=== PATIENT | male | born 1965 | race Caucasian/White ===

== ENCOUNTER 2019-02-06 10:45 | Inpatient (IN) | payer OTHER ==
[2019-02-06 11:12] VITALS: BMI 29.2
--- NOTE | 2019-02-06 11:53 | HP ---
CIWA Score Nausea/Vomitin-No Nausea/No Vomiting Muscle Tremors: 2 Anxiety: 0-No Anxiety, at Ease Agitation: 4-Moderately Restless Paroxysmal Sweats: No Perspiration Orientation: 3-Disoriented Date>2 days Tacttile Disturbances: 0-None Auditory Disturbances: 0-None Visual Disturbances: 0-None Headache: 0-None Present CIWA-Ar Total Score: 9 - Admission Criteria OASAS Guidelines: Admission for Medically Managed Detox: Requires at least one of the followin. CIWA greater than 12 2. Seizures within the past 24 hours 3. Delirium tremens within the past 24 hours 4. Hallucinations within the past 24 hours 5. Acute intervention needed for co occurring medical disorder 6. Acute intervention needed for co occurring psychiatric disorder 7. Severe withdrawal that cannot be handled at a lower level of care (continued vomiting, continued diarrhea, abnormal vital signs) requiring intravenous medication and/or fluids 8. Admission ROS [facility] Allergies/Adverse Reactions: Allergies Allergy/AdvReac Type Severity Reaction Status Date / Time Fish Containing Products Allergy Verified 02/06/19 11:00 fish derived Allergy Rash Verified 02/06/19 11:00 History of Present Illness: pt here requesting detox from etoh use , reports 18-pk beer and 1 pint rum daily , current symptoms as above, s/p hospitalization in [facility] given meds Librium per pt . pmhx : denies pshx ; lumbar laminectomy 10 years ago w/ hardware in place , ddd psych : denies Exam Limitations: Clinical Condition, Intoxication - Ebola screening Have you traveled outside of the country in the last 21 days: No Have you had contact with anyone from an Ebola affected area: No Do you have a fever: No - Review of Systems Constitutional: No Symptoms Reported EENT: reports: No Symptoms Reported Respiratory: reports: No Symptoms reported Cardiac: reports: No Symptoms Reported GI: reports: Diarrhea : reports: No Symptoms Reported Musculoskeletal: reports: Back Pain Integumentary: reports: No Symptoms Reported Neuro: reports: No Symptoms reported Endocrine: reports: No Symptoms Reported Psychiatric: reports: Orientated x3, Agitated Patient History - Smoking Cessation Smoking history: Smoker current status UNK - Substances abused Alcohol Substance route: Oral Frequency: Daily Amount used: 1 pint of Barcardi, 18 12oz beer Age of first use: 12 Date of last use: 02/06/19 Family Disease History - Family Disease History Family History: Unable to Obtain Admission Physical Exam BHS - Vital Signs Vital Signs: Vital Signs - 24 hr 02/06/19 02/06/19 11:04 11:44 Temperature 98.1 F 98.1 F Pulse Rate 84 84 Respiratory 18 18 Rate Blood Pressure 153/99 153/99 - Physical General Appearance: Yes: Disheveled, Mild Distress HEENTM: Yes: EOMI, Hearing grossly Normal, Normocephalic, Normal Voice Respiratory: Yes: Chest Non-Tender, Lungs Clear, Normal Breath Sounds, No Respiratory Distress, No Accessory Muscle Use Neck: Yes: No masses,lesions,Nodules, Trachea in good position Cardiology: Yes: Regular Rhythm, Regular Rate, S1, S2 Abdominal: Yes: Non Tender, Soft Musculoskeletal: Yes: Gait Steady Extremities: Yes: Normal Range of Motion, Non-Tender, Tremors Neurological: Yes: Alert, Motor Strength 5/5 Integumentary: Yes: Warm - Diagnostic (1) Alcohol abuse Current Visit: Yes Status: Acute Breathalyzer - Breathalyzer Breathalyzer: 0.083 Urine Drug Screen - Test Device Lot number: [id number] Expiration date: 10/12/20 - Control Is test valid?: Yes - Results Drug screen NEGATIVE: No Urine drug screen results: BZO-Benzodiazepines Inpatient Rehab Admission - Rehab Decision to Admit Inpatient rehab admission?: No
[2019-02-06] MEDS ORDERED: IBUPROFEN 400 MG TABLET (FP) PO PRN (11:57)
[2019-02-06] MEDS ORDERED: MAGNESIUM HYDROX 2400MG/30ML ORAL SUSPENSION 30 ML CUP PO PRN (11:57)
[2019-02-06] MEDS ORDERED: BISMUTH SUBSALICYLATE 262 MG/15 ML BTL PO PRN (11:57)
[2019-02-06] MEDS ORDERED: ACETAMINOPHEN 325 MG TABLET (FP) PO PRN ×2 (11:57)
[2019-02-06] MEDS ORDERED: MAGNESIUM CITRATE 300 ML BOTTLE PO PRN (11:57)
[2019-02-06] MEDS ORDERED: MAG HYDROX/AL HYDROX/SIMETH 30 ML UNIT-DOSE CUP PO PRN (11:57)
[2019-02-06] MEDS ORDERED: NICOTINE POLACRILEX 2 MG GUM BUC PRN (11:57)
[2019-02-06] MEDS ORDERED: MENTHOL/PHENOL 1 EACH UD MM PRN (11:57)
[2019-02-06] MEDS ORDERED: chlordiazePOXIDE HCL 25 MG CAPSULE PO PRN (11:57)
[2019-02-06] MEDS ORDERED: hydrOXYzine PAMOATE 25 MG CAPSULE (FP) PO PRN (11:57)
[2019-02-06] MEDS ORDERED: chlordiazePOXIDE HCL 25 MG CAPSULE PO ONE (13:05)
[2019-02-06] MEDS: NICOTINE 21 MG/24 HOURS TOPICAL PATCH TD SCH (13:51)
[2019-02-06 17:09] LABS: BASO % 0.8 % (0-2.0); EOS % 2.1 % (0-4.5); HEMATOCRIT 40.1 % (35.4-49); LYMPH % 21.1 % (8-40); MCH 30.3 pg (25.7-33.7); MCHC 32.4 g/dl (32.0-35.9); MEAN CELL VOLUME 93.5 fl (80-96); MEAN PLT VOLUME 9.7 fl (7.5-11.1); MONO % 9.2 % (3.8-10.2); NEUT % 66.8 % (42.8-82.8); PLATELET COUNT 48 K/MM3 (134-434); RBC 4.29 M/mm3 (4.00-5.60); WHITE BLOOD COUNT 3.9 K/mm3 (4.0-10.0)
[2019-02-06 17:17] LABS: ALBUMIN 3.3 g/dl (3.4-5.0); BILIRUBIN,TOTAL 1.2 mg/dL (0.2-1); CALCIUM 7.6 mg/dL (8.5-10.1); CREATININE 0.7 mg/dL (0.55-1.3); POTASSIUM 4.4 mmol/L (3.5-5.1); TOT PROT 7.4 g/dl (6.4-8.2)
[2019-02-06 17:23] LABS: BLOOD UREA NITROGEN 2.7 mg/dL (7-18)
[2019-02-06] MEDS: chlordiazePOXIDE HCL 25 MG CAPSULE PO SCH ×2 (17:35→22:22)
[2019-02-06] MEDS: THIAMINE HCL 100 MG TABLET (FP) PO SCH (22:23)
[2019-02-07] MEDS: chlordiazePOXIDE HCL 25 MG CAPSULE PO SCH ×4 (06:28→22:33)
[2019-02-07] MEDS: NICOTINE 21 MG/24 HOURS TOPICAL PATCH TD SCH (10:04)
[2019-02-07] MEDS: PRENATAL VITAMINS W/ FOLIC ACID TABLET (FP) PO SCH (10:04)
--- NOTE | 2019-02-07 14:43 | PN ---
S CIWA - CIWA Score Nausea/Vomitin-Mild Nausea/No Vomiting Muscle Tremors: 1-None Visible, but [place] Anxiety: 1-Mildly Anxious Agitation: 1-Slight > Activity Paroxysmal Sweats: 1-Minimal Palms Moist Orientation: 0-Oriented Tacttile Disturbances: 0-None Auditory Disturbances: 0-None Visual Disturbances: 0-None Headache: 0-None Present CIWA-Ar Total Score: 5 BHS Progress Note (SOAP) Subjective: pt states he is feeling better. O: Vital Signs - 24 hr 02/06/19 02/06/19 02/07/19 16:43 20:44 00:30 Temperature 99 F 99.7 F H Pulse Rate 81 63 Respiratory 18 18 18 Rate Blood Pressure 152/96 108/30 L 02/07/19 02/07/19 02/07/19 03:30 07:07 10:00 Temperature 98.6 F 98.1 F Pulse Rate 79 72 Respiratory 18 18 18 Rate Blood Pressure 116/70 117/60 02/07/19 14:06 Temperature 97.3 F L Pulse Rate 82 Respiratory 18 Rate Blood Pressure 122/90 Laboratory Tests 02/06/19 02/06/19 02/06/19 13:35 13:35 13:35 WBC 3.9 L RBC 4.29 Hgb 13.0 Hct 40.1 MCV 93.5 MCH 30.3 MCHC 32.4 RDW 18.0 H Plt Count 48 L MPV 9.7 Absolute Neuts (auto) 2.6 Neutrophils % 66.8 Lymphocytes % 21.1 Monocytes % 9.2 Eosinophils % 2.1 Basophils % 0.8 Nucleated RBC % 0 Sodium 141 Potassium 4.4 Chloride 106 Carbon Dioxide 31 Anion Gap 4 L BUN 2.7 L* Creatinine 0.7 Est GFR (CKD-EPI)AfAm 123.13 Est GFR (CKD-EPI)NonAf 106.24 Random Glucose 94 Calcium 7.6 L Total Bilirubin 1.2 H AST 184 H ALT 63 H Alkaline Phosphatase 143 H Total Protein 7.4 Albumin 3.3 L RPR Titer Nonreactive low BUN. low albumin: may indicate low protein intake a/p: continue alcohol detox protocol
[2019-02-07] MEDS: THIAMINE HCL 100 MG TABLET (FP) PO SCH (22:33)
[2019-02-07] MEDS: MELATONIN 5 MG TABLETS PO PRN (22:33)
[2019-02-08] MEDS: chlordiazePOXIDE HCL 25 MG CAPSULE PO SCH ×2 (05:38→11:09)
[2019-02-08] MEDS: PRENATAL VITAMINS W/ FOLIC ACID TABLET (FP) PO SCH (11:09)
[2019-02-08] MEDS: NICOTINE 21 MG/24 HOURS TOPICAL PATCH TD SCH (11:09)
--- NOTE | 2019-02-08 11:11 | PN ---
S CIWA - CIWA Score Nausea/Vomitin Muscle Tremors: 2 Anxiety: 2 Agitation: 2 Paroxysmal Sweats: 1-Minimal Palms Moist Orientation: 0-Oriented Tacttile Disturbances: 1-Very Mild Itch/Numbness Auditory Disturbances: 1-Very Mild Visual Disturbances: 0-None Headache: 2-Mild CIWA-Ar Total Score: 13 BHS Progress Note (SOAP) Subjective: alert,irritable,anxious,interrupted sleep,tremor Objective: 02/08/19 11:07 Vital Signs Temperature 98.4 F 02/08/19 09:16 Pulse Rate 74 02/08/19 09:16 Respiratory Rate 16 02/08/19 09:16 Blood Pressure 103/64 02/08/19 09:16 O2 Sat by Pulse Oximetry (%) 02/08/19 11:08 Laboratory Last Values WBC 3.9 K/mm3 (4.0-10.0) L 02/06/19 13:35 RBC 4.29 M/mm3 (4.00-5.60) 02/06/19 13:35 Hgb 13.0 GM/dL (11.7-16.9) 02/06/19 13:35 Hct 40.1 % (35.4-49) 02/06/19 13:35 MCV 93.5 fl (80-96) 02/06/19 13:35 MCH 30.3 pg (25.7-33.7) 02/06/19 13:35 MCHC 32.4 g/dl (32.0-35.9) 02/06/19 13:35 RDW 18.0 % (11.9-15.9) H 02/06/19 13:35 Plt Count 48 K/MM3 (134-434) L 02/06/19 13:35 MPV 9.7 fl (7.5-11.1) 02/06/19 13:35 Absolute Neuts (auto) 2.6 K/mm3 (1.5-8.0) 02/06/19 13:35 Neutrophils % 66.8 % (42.8-82.8) 02/06/19 13:35 Lymphocytes % 21.1 % (8-40) 02/06/19 13:35 Monocytes % 9.2 % (3.8-10.2) 02/06/19 13:35 Eosinophils % 2.1 % (0-4.5) 02/06/19 13:35 Basophils % 0.8 % (0-2.0) 02/06/19 13:35 Nucleated RBC % 0 % (0-0) 02/06/19 13:35 Sodium 141 mmol/L (136-145) 02/06/19 13:35 Potassium 4.4 mmol/L (3.5-5.1) 02/06/19 13:35 Chloride 106 mmol/L (98-107) 02/06/19 13:35 Carbon Dioxide 31 mmol/L (21-32) 02/06/19 13:35 Anion Gap 4 MMOL/L (8-16) L 02/06/19 13:35 BUN 2.7 mg/dL (7-18) L* 02/06/19 13:35 Creatinine 0.7 mg/dL (0.55-1.3) 02/06/19 13:35 Est GFR (CKD-EPI)AfAm 123.13 02/06/19 13:35 Est GFR (CKD-EPI)NonAf 106.24 02/06/19 13:35 Random Glucose 94 mg/dL (74-106) 02/06/19 13:35 Calcium 7.6 mg/dL (8.5-10.1) L 02/06/19 13:35 Total Bilirubin 1.2 mg/dL (0.2-1) H 02/06/19 13:35 AST 184 U/L (15-37) H 02/06/19 13:35 ALT 63 U/L (13-61) H 02/06/19 13:35 Alkaline Phosphatase 143 U/L (45-117) H 02/06/19 13:35 Total Protein 7.4 g/dl (6.4-8.2) 02/06/19 13:35 Albumin 3.3 g/dl (3.4-5.0) L 02/06/19 13:35 RPR Titer Nonreactive (NONREACTIVE) 02/06/19 13:35 Assessment: 02/08/19 11:08 withdrawal symptom Plan: continue detox,repeat cmp in am,initial bun is 2.7,bili 1.2,ast 184.alt63, encourage oral fluid,repeat cmp in am
[2019-02-08] MEDS ORDERED: chlordiazePOXIDE HCL 10 MG CAPSULE PO PRN (17:00)
[2019-02-08] MEDS: chlordiazePOXIDE HCL 10 MG CAPSULE PO SCH ×2 (17:52→22:33)
[2019-02-08] MEDS: THIAMINE HCL 100 MG TABLET (FP) PO SCH (22:33)
[2019-02-08] MEDS: MELATONIN 5 MG TABLETS PO PRN (22:34)
[2019-02-09] MEDS: chlordiazePOXIDE HCL 10 MG CAPSULE PO SCH ×3 (06:11→17:36)
[2019-02-09] MEDS: PRENATAL VITAMINS W/ FOLIC ACID TABLET (FP) PO SCH (10:27)
[2019-02-09] MEDS: NICOTINE 21 MG/24 HOURS TOPICAL PATCH TD SCH (10:27)
[2019-02-09 12:02] LABS: ALBUMIN 2.8 g/dl (3.4-5.0); BILIRUBIN,TOTAL 1.2 mg/dL (0.2-1); CALCIUM 8.2 mg/dL (8.5-10.1); CREATININE 0.7 mg/dL (0.55-1.3); TOT PROT 6.1 g/dl (6.4-8.2)
--- NOTE | 2019-02-09 12:02 | PN ---
[facility] CIWA - CIWA Score Nausea/Vomitin-No Nausea/No Vomiting Muscle Tremors: 1-None Visible, but [place] Anxiety: 1-Mildly Anxious Agitation: 0-Normal Activity Paroxysmal Sweats: 1-Minimal Palms Moist Orientation: 0-Oriented Tacttile Disturbances: 0-None Auditory Disturbances: 0-None Visual Disturbances: 0-None Headache: 0-None Present CIWA-Ar Total Score: 3 BHS Progress Note (SOAP) Subjective: c/o of back pain, interrupted sleep, diarrhea Objective: 02/09/19 12:02 Vital Signs Temperature 98.1 F 02/09/19 09:15 Pulse Rate 83 02/09/19 09:15 Respiratory Rate 16 02/09/19 09:15 Blood Pressure 129/74 02/09/19 09:15 O2 Sat by Pulse Oximetry (%) Laboratory Tests 02/06/19 02/06/19 02/06/19 13:35 13:35 13:35 WBC 3.9 L RBC 4.29 Hgb 13.0 Hct 40.1 MCV 93.5 MCH 30.3 MCHC 32.4 RDW 18.0 H Plt Count 48 L MPV 9.7 Absolute Neuts (auto) 2.6 Neutrophils % 66.8 Lymphocytes % 21.1 Monocytes % 9.2 Eosinophils % 2.1 Basophils % 0.8 Nucleated RBC % 0 Sodium 141 Potassium 4.4 Chloride 106 Carbon Dioxide 31 Anion Gap 4 L BUN 2.7 L* Creatinine 0.7 Est GFR (CKD-EPI)AfAm 123.13 Est GFR (CKD-EPI)NonAf 106.24 Random Glucose 94 Calcium 7.6 L Total Bilirubin 1.2 H AST 184 H ALT 63 H Alkaline Phosphatase 143 H Total Protein 7.4 Albumin 3.3 L RPR Titer Nonreactive 02/09/19 07:00 WBC RBC Hgb Hct MCV MCH MCHC RDW Plt Count MPV Absolute Neuts (auto) Neutrophils % Lymphocytes % Monocytes % Eosinophils % Basophils % Nucleated RBC % Sodium 142 Potassium 4.0 Chloride 106 Carbon Dioxide 33 H Anion Gap 3 L BUN Creatinine 0.7 Est GFR (CKD-EPI)AfAm 123.13 Est GFR (CKD-EPI)NonAf 106.24 Random Glucose 76 Calcium 8.2 L Total Bilirubin 1.2 H AST 85 H ALT 58 Alkaline Phosphatase 134 H Total Protein 6.1 L Albumin 2.8 L RPR Titer Labs reviewed Assessment: 02/09/19 12:05 Aox3, no acute distress, full ROM ambulating in the unit Plan: increase PO fluids CMP improve from initial visit Patient to follow up with PCP upon discharge Continue to monitor
[2019-02-09 12:07] LABS: BLOOD UREA NITROGEN 2.2 mg/dL (7-18)
[2019-02-09] MEDS: MELATONIN 5 MG TABLETS PO PRN (22:13)
[2019-02-09] MEDS: THIAMINE HCL 100 MG TABLET (FP) PO SCH (22:13)
[2019-02-10] MEDS: chlordiazePOXIDE HCL 10 MG CAPSULE PO SCH (06:12)
[2019-02-10 06:53] VITALS: PULSE 65
[2019-02-10 10:38] VITALS: BP 104/65; TEMP 97.9
[2019-02-10] MEDS: NICOTINE 21 MG/24 HOURS TOPICAL PATCH TD SCH (11:28)
[2019-02-10] MEDS: PRENATAL VITAMINS W/ FOLIC ACID TABLET (FP) PO SCH (11:28)
--- NOTE | 2019-02-10 12:54 | DS ---
[facility] Detox Discharge Summary Admission Date: 02/06/19 Discharge Date: 02/10/19 - History Present History: Alcohol Dependence Additional Comments: Pt is medically cleared and is discharged today. Pt has completed his detox protocol. As per socialworker's notes, "PT shared about consequences of his drinking which this time resulted in all his clothes, wallet and his phone [place] train. If there is no bed in [facility] upon his DC, PT plans to go reinstate his IDs. This Counselor gave him some clothes from donation". Pt is alert and oriented x3, in no acute respiratory distress. Pt is encouraged to follow-up with oupatient CD program and also to follow with with his PMD. Pt verbalized understanding. Pertinent Past History: H/O alcohol use disorder. - Physical Exam Results Vital Signs: Vital Signs Temperature 97.9 F 02/10/19 10:37 Pulse Rate 65 02/10/19 10:37 Respiratory Rate 18 02/10/19 10:37 Blood Pressure 104/65 02/10/19 10:37 O2 Sat by Pulse Oximetry (%) Vital Signs 02/10/19 02/10/19 06:51 10:37 Temperature 97.7 F 97.9 F Pulse Rate 65 65 Respiratory 18 18 Rate Blood Pressure 115/76 104/65 Laboratory Last Values WBC 3.9 K/mm3 (4.0-10.0) L 02/06/19 13:35 RBC 4.29 M/mm3 (4.00-5.60) 02/06/19 13:35 Hgb 13.0 GM/dL (11.7-16.9) 02/06/19 13:35 Hct 40.1 % (35.4-49) 02/06/19 13:35 MCV 93.5 fl (80-96) 02/06/19 13:35 MCH 30.3 pg (25.7-33.7) 02/06/19 13:35 MCHC 32.4 g/dl (32.0-35.9) 02/06/19 13:35 RDW 18.0 % (11.9-15.9) H 02/06/19 13:35 Plt Count 48 K/MM3 (134-434) L 02/06/19 13:35 MPV 9.7 fl (7.5-11.1) 02/06/19 13:35 Absolute Neuts (auto) 2.6 K/mm3 (1.5-8.0) 02/06/19 13:35 Neutrophils % 66.8 % (42.8-82.8) 02/06/19 13:35 Lymphocytes % 21.1 % (8-40) 02/06/19 13:35 Monocytes % 9.2 % (3.8-10.2) 02/06/19 13:35 Eosinophils % 2.1 % (0-4.5) 02/06/19 13:35 Basophils % 0.8 % (0-2.0) 02/06/19 13:35 Nucleated RBC % 0 % (0-0) 02/06/19 13:35 Sodium 142 mmol/L (136-145) 02/09/19 07:00 Potassium 4.0 mmol/L (3.5-5.1) 02/09/19 07:00 Chloride 106 mmol/L (98-107) 02/09/19 07:00 Carbon Dioxide 33 mmol/L (21-32) H 02/09/19 07:00 Anion Gap 3 MMOL/L (8-16) L 02/09/19 07:00 BUN 2.2 mg/dL (7-18) L* 02/09/19 07:00 Creatinine 0.7 mg/dL (0.55-1.3) 02/09/19 07:00 Est GFR (CKD-EPI)AfAm 123.13 02/09/19 07:00 Est GFR (CKD-EPI)NonAf 106.24 02/09/19 07:00 Random Glucose 76 mg/dL (74-106) 02/09/19 07:00 Calcium 8.2 mg/dL (8.5-10.1) L 02/09/19 07:00 Total Bilirubin 1.2 mg/dL (0.2-1) H 02/09/19 07:00 AST 85 U/L (15-37) H 02/09/19 07:00 ALT 58 U/L (13-61) 02/09/19 07:00 Alkaline Phosphatase 134 U/L (45-117) H 02/09/19 07:00 Total Protein 6.1 g/dl (6.4-8.2) L 02/09/19 07:00 Albumin 2.8 g/dl (3.4-5.0) L 02/09/19 07:00 RPR Titer Nonreactive (NONREACTIVE) 02/06/19 13:35 Labs noted. Pertinent Admission Physical Exam Findings: withdrawal symptoms. - Treatment Hospital Course: Detox Protocol Followed, Detoxed Safely, Responded well, Discharged Condition Good - Medication Discharge Medications: Ambulatory Orders NK [No Known Home Medication] 02/06/19 - Diagnosis (1) Alcohol abuse Status: Acute - AMA Did Patient Leave Against Medical Advice: No
== END 2019-02-10 11:35 | disposition home or self-care (01) | DRG 775 ==
LOC: YASAS 10:45 → Y6N 12:35
PROVIDERS: ADMIT Surgery; ATTEND Surgery
PROC: HZ2ZZZZ Detoxification Services for Substance Abuse Treatment (ICD-10-PCS; principal; 2019-02-06)
DX: F10.230 Alcohol dependence with withdrawal, uncomplicated (principal); Z91.013 Allergy to seafood; Z59.0 Homelessness
CPT/HCPCS: 36415; 80053; 85025; 86593

== ENCOUNTER 2024-10-03 22:14 | Inpatient (IN) | payer OTHER ==
[2024-10-03 22:43] VITALS: BMI 32.5
[2024-10-03] MEDS ORDERED: BENZONATATE 200 MG CAPSULE PO PRN (23:04)
[2024-10-03] MEDS ORDERED: MAG HYDROX/AL HYDROX/SIMETH 30 ML UNIT-DOSE CUP PO PRN (23:04)
[2024-10-03] MEDS ORDERED: POLYETHYLENE GLYCOL (HEALTHYLAX) 3350 17 GM PACKET PO PRN (23:04)
[2024-10-03] MEDS ORDERED: DICYCLOMINE HCL 10 MG CAPSULE PO PRN (23:04)
[2024-10-03] MEDS ORDERED: hydrOXYzine PAMOATE 25 MG CAPSULE (FP) PO PRN (23:04)
[2024-10-03] MEDS ORDERED: MAGNESIUM HYDROX 2400MG/30ML ORAL SUSPENSION 30 ML CUP PO PRN (23:04)
[2024-10-03] MEDS ORDERED: BISMUTH SUBSALICYLATE 524 MG/30 ML PO PRN (23:04)
[2024-10-03] MEDS ORDERED: guaiFENesin 600 MG TABLET.ER (FP) PO PRN (23:04)
[2024-10-03] MEDS ORDERED: LOPERAMIDE HCL 2 MG CAPSULE PO PRN (23:04)
[2024-10-03] MEDS ORDERED: NICOTINE POLACRILEX 4 MG GUM BUC PRN (23:04)
[2024-10-03] MEDS ORDERED: NALOXONE (NARCAN) HCL 4 MG/0.1 ML SPRAY NS PRN (23:04)
[2024-10-03] MEDS ORDERED: IBUPROFEN 400 MG TABLET (FP) PO PRN (23:04)
[2024-10-03] MEDS ORDERED: ONDANSETRON *ODT* 4 MG TABLET SL PRN (23:04)
[2024-10-03] MEDS ORDERED: IBUPROFEN 600 MG TABLET (FP) PO PRN (23:04)
[2024-10-04 09:35] LABS: CHLORIDE 102 mmol/L (98-107); POTASSIUM 4.3 mmol/L (3.5-5.1); SODIUM 141 mmol/L (136-145)
[2024-10-04 09:39] LABS: HEMATOCRIT 47.9 % (35.4-49); HEMOGLOBIN 15.8 GM/dL (11.7-16.9); MCH 32.2 pg (25.7-33.7); MCHC 32.9 g/dl (32.0-35.9); MEAN CELL VOLUME 97.7 fl (80-96); MEAN PLT VOLUME 9.6 fl (7.5-11.1); PLATELET COUNT 90 10^3/uL (134-434); RDW 12.6 % (11.9-15.9); WHITE BLOOD COUNT 3.7 K/mm3 (4.0-10.0)
[2024-10-04 09:57] LABS: CALCIUM 8.8 mg/dL (8.5-10.1)
[2024-10-04 09:58] LABS: ALBUMIN 3.8 g/dl (3.4-5.0); ANION GAP 4 mmol/L (4-13); BLOOD UREA NITROGEN 5.9 mg/dL (7-18); CO2 34 mmol/L (21-32); GLUCOSE,RANDOM 100 mg/dL (74-106)
[2024-10-04 10:01] LABS: CREATININE 0.7 mg/dL (0.55-1.3); SGOT/AST 43 U/L (15-37); SGPT/ALT 35 U/L (13-61)
[2024-10-04 10:02] LABS: BILIRUBIN,TOTAL 2.9 mg/dL (0.2-1)
[2024-10-04 10:03] LABS: ALK PHOS 60 U/L (45-117); TOT PROT 7.2 g/dl (6.4-8.2)
[2024-10-04] MEDS: NICOTINE 21 MG/24 HOURS TOPICAL PATCH TD SCH ×2 (10:32)
[2024-10-04] MEDS: chlordiazePOXIDE HCL 25 MG CAPSULE PO SCH (10:32)
[2024-10-04] MEDS: PRENATAL VITAMINS W/ FOLIC ACID TABLET (FP) PO SCH (10:32)
[2024-10-04] MEDS ORDERED: cloNIDine HCL 0.1 MG TABLET PO PRN (13:47)
[2024-10-04] MEDS: cloNIDine HCL 0.1 MG TABLET PO PRN (14:29)
[2024-10-04] MEDS: MELATONIN 5 MG TABLETS PO SCH (22:01)
[2024-10-04] MEDS: THIAMINE 100 MG TABLET PO SCH (22:02)
[2024-10-06] MEDS: chlordiazePOXIDE HCL 25 MG CAPSULE PO SCH (05:52)
[2024-10-06] MEDS: ACETAMINOPHEN 325 MG TABLET (FP) PO PRN (22:33)
[2024-10-06] MEDS: chlordiazePOXIDE HCL 25 MG CAPSULE PO PRN (22:35)
[2024-10-07] MEDS ORDERED: chlordiazePOXIDE HCL 10 MG CAPSULE PO PRN
[2024-10-07] MEDS: chlordiazePOXIDE HCL 10 MG CAPSULE PO SCH (05:50)
[2024-10-07] MEDS: BENZOCAINE/MENTHOL (CHLORASEPTIC ) LOZENGE MM PRN (05:51)
[2024-10-08] MEDS: chlordiazePOXIDE HCL 10 MG CAPSULE PO SCH (05:36)
[2024-10-09] MEDS: chlordiazePOXIDE HCL 10 MG CAPSULE PO ONE (05:24)
[2024-10-09 08:40] VITALS: BP 128/89; PULSE 61; RESP 16; TEMP 97.3
== END 2024-10-09 09:22 | disposition home or self-care (01) | DRG 775 ==
LOC: YASAS 22:14 → Y3N 23:36
PROVIDERS: ADMIT Allergy & Immunology; ATTEND Allergy & Immunology
PROC: HZ2ZZZZ Detoxification Services for Substance Abuse Treatment (ICD-10-PCS; principal; 2024-10-03)
DX: F10.230 Alcohol dependence with withdrawal, uncomplicated (principal); F10.220 Alcohol dependence with intoxication, uncomplicated; F17.210 Nicotine dependence, cigarettes, uncomplicated; F19.24 Other psychoactive substance dependence with psychoactive substance-induced mood disorder; M54.9 Dorsalgia, unspecified; G89.29 Other chronic pain; Z59.00 Homelessness unspecified
CPT/HCPCS: 36415; 80053; 80305; 80307; 85027; 86780; 93005; 93010

== ENCOUNTER 2024-11-05 23:12 | Inpatient (IN) | payer OTHER ==
[2024-11-05 23:50] VITALS: BMI 30.9
[2024-11-06] MEDS ORDERED: BISMUTH SUBSALICYLATE 524 MG/30 ML PO PRN (00:13)
[2024-11-06] MEDS ORDERED: ACETAMINOPHEN 325 MG TABLET (FP) PO PRN (00:13)
[2024-11-06] MEDS ORDERED: guaiFENesin 600 MG TABLET.ER (FP) PO PRN (00:13)
[2024-11-06] MEDS ORDERED: POLYETHYLENE GLYCOL (HEALTHYLAX) 3350 17 GM PACKET PO PRN (00:13)
[2024-11-06] MEDS ORDERED: NALOXONE (NARCAN) HCL 4 MG/0.1 ML SPRAY NS PRN (00:13)
[2024-11-06] MEDS ORDERED: IBUPROFEN 400 MG TABLET (FP) PO PRN (00:13)
[2024-11-06] MEDS ORDERED: IBUPROFEN 600 MG TABLET (FP) PO PRN (00:13)
[2024-11-06] MEDS ORDERED: BENZOCAINE/MENTHOL (CHLORASEPTIC ) LOZENGE MM PRN (00:13)
[2024-11-06] MEDS ORDERED: LOPERAMIDE HCL 2 MG CAPSULE PO PRN (00:13)
[2024-11-06] MEDS ORDERED: DICYCLOMINE HCL 10 MG CAPSULE PO PRN (00:13)
[2024-11-06] MEDS ORDERED: MAG HYDROX/AL HYDROX/SIMETH 30 ML UNIT-DOSE CUP PO PRN (00:13)
[2024-11-06] MEDS ORDERED: NICOTINE POLACRILEX 2 MG LOZENGE BC PRN (00:13)
[2024-11-06] MEDS ORDERED: MAGNESIUM HYDROX 2400MG/30ML ORAL SUSPENSION 30 ML CUP PO PRN (00:13)
[2024-11-06] MEDS ORDERED: BENZONATATE 200 MG CAPSULE PO PRN (00:13)
[2024-11-06] MEDS ORDERED: chlordiazePOXIDE HCL 25 MG CAPSULE ONE (00:28)
[2024-11-06] MEDS ORDERED: ONDANSETRON *ODT* 4 MG TABLET ONE (00:28)
[2024-11-06] MEDS: chlordiazePOXIDE HCL 25 MG CAPSULE PO PRN (00:32)
[2024-11-06] MEDS: ONDANSETRON *ODT* 4 MG TABLET SL PRN (00:33)
[2024-11-06] MEDS: chlordiazePOXIDE HCL 25 MG CAPSULE PO SCH (05:34)
[2024-11-06 09:49] LABS: HEMATOCRIT 43.8 % (40.1-51.0); HEMOGLOBIN 15.2 g/dL (13.7-17.5); MCHC 34.7 g/dl (32.3-36.5); MEAN CELL VOLUME 90.3 fl (79.0-92.2); MEAN PLT VOLUME 12.1 fl (9.4-12.4); PLATELET COUNT 101 x10^3/uL (163-337); RDW 11.8 % (12.2-16.4)
[2024-11-06 09:52] LABS: POTASSIUM 3.3 mmol/L (3.5-5.1)
[2024-11-06 10:11] LABS: ALBUMIN 3.6 g/dl (3.4-5.0); BLOOD UREA NITROGEN 4.6 mg/dL (7-18); TOT PROT 7.4 g/dl (6.4-8.2)
[2024-11-06 10:14] LABS: CALCIUM 8.4 mg/dL (8.5-10.1); CREATININE 0.6 mg/dL (0.55-1.3)
[2024-11-06] MEDS: PRENATAL VITAMINS W/ FOLIC ACID TABLET (FP) PO SCH (10:46)
[2024-11-06] MEDS: NICOTINE 21 MG/24 HOURS TOPICAL PATCH TD SCH (10:46)
[2024-11-06] MEDS: POTASSIUM CHLORIDE ORAL LIQUID 20 MEQ/15 ML PO ONE (14:45)
[2024-11-06] MEDS: MELATONIN 5 MG TABLETS PO SCH (22:17)
[2024-11-06] MEDS: THIAMINE 100 MG TABLET PO SCH (22:17)
[2024-11-07] MEDS: chlordiazePOXIDE HCL 25 MG CAPSULE PO SCH (06:00)
[2024-11-08] MEDS ORDERED: chlordiazePOXIDE HCL 10 MG CAPSULE PO PRN
[2024-11-08] MEDS: chlordiazePOXIDE HCL 10 MG CAPSULE PO SCH (05:47)
[2024-11-09] MEDS: chlordiazePOXIDE HCL 10 MG CAPSULE PO SCH (05:38)
[2024-11-10] MEDS: chlordiazePOXIDE HCL 10 MG CAPSULE PO ONE (05:35)
[2024-11-11] MEDS: NALTREXONE HCL 50 MG TABLET PO ONE (14:29)
[2024-11-12 09:24] VITALS: BP 134/89; PULSE 86; RESP 18; TEMP 97.3
[2024-11-12] MEDS: NALTREXONE HCL 50 MG TABLET PO SCH (10:49)
== END 2024-11-12 10:42 | disposition other institution (70) | DRG 775 ==
LOC: YASAS 23:12 → Y6N 11-06 01:15
PROVIDERS: ADMIT Allergy & Immunology; ATTEND Allergy & Immunology
PROC: HZ2ZZZZ Detoxification Services for Substance Abuse Treatment (ICD-10-PCS; principal; 2024-11-06)
DX: F10.230 Alcohol dependence with withdrawal, uncomplicated (principal); F17.210 Nicotine dependence, cigarettes, uncomplicated; F19.24 Other psychoactive substance dependence with psychoactive substance-induced mood disorder; E87.6 Hypokalemia; M54.50 Low back pain, unspecified; G89.29 Other chronic pain
CPT/HCPCS: 36415; 80053; 80305; 80307; 82247; 84132; 85027; 86780; Q0162